=== PATIENT | male | born 1975 | race Hispanic/Latino ===

== ENCOUNTER 2021-05-19 19:02 | Emergency (ER) | payer OTHER ==
[~2021-05-19] VITALS: Ht 172.7 cm; Wt 115.7 kg
[2021-05-19 19:14] VITALS: BP 160/88
[2021-05-19 19:49] LABS: HEMATOCRIT 43.1 % (42-54); MEAN CORPUSCULAR HEMOGLOBIN 30.4 pg (27.0-33.0); MEAN CORPUSCULAR HGB CONC 33.9 g/dL (32.0-36.0); MEAN CORPUSCULAR VOLUME 89.6 fL (79-99); RED BLOOD CELL COUNT(AUTO) 4.81 MIL/uL (4.50-6.20); RED CELL DISTRIBUTION WIDTH 13.7 % (11.0-15.5); WHITE BLOOD COUNT (AUTO) 10.2 K/uL (4.8-10.8)
[2021-05-19 20:00] LABS: CREATININE 1.1 mg/dL (0.5-1.5); POTASSIUM 3.9 mmol/L (3.5-5.1)
[2021-05-19] MEDS ORDERED: LORAZEPAM 2 MG/ML 1 ML VIAL IVP ONE (20:00)
[2021-05-19 20:04] LABS: ALBUMIN 3.9 g/dL (3.5-5.0); BILIRUBIN,TOTAL 0.5 mg/dL (0.2-1.0); TOTAL PROTEIN, SERUM 7.7 g/dL (6.0-8.3)
[2021-05-19 20:54] VITALS: BP 143/81
[2021-05-19 22:41] VITALS: BP 128/78
[2021-05-19 22:43] LABS: BILIRUBIN,URINE Negative (NEGATIVE); COLOR,URINE Yellow (YELLOW); GLUCOSE, URINE (UA) Negative (NEGATIVE); KETONES,URINE Trace mg/dL (NEGATIVE); LEUKOCYTE ESTERASE ,URINE Negative (NEGATIVE); NITRATE,URINE Negative (NEGATIVE); OCCULT BLOOD,URINE Negative (NEGATIVE); PH,URINE 5.5 (5.0-8.0); PROTEIN,URINE Negative (NEGATIVE)
[2021-05-19 22:46] LABS: APPEARANCE,URINE CLEAR (CLEAR)
[2021-05-19 22:51] LABS: AMPHET/METH SCREEN,URINE NEGATIVE (NEGATIVE); BARBITURATE SCREEN, URINE NEGATIVE (NEGATIVE); BENZODIAZEPINES SCREEN,URINE NEGATIVE (NEGATIVE); CANNABINOID SCREEN,URINE POSITIVE (NEGATIVE); COCAINE SCREEN,URINE NEGATIVE (NEGATIVE); OPIATE SCREEN,URINE NEGATIVE (NEGATIVE); PHENCYCLIDINE SCREEN,URINE NEGATIVE (NEGATIVE)
[2021-05-19] MEDS ORDERED: NITROGLYCERIN 1GM OINT 1 INCH/1GM TD ONE (23:00)
[2021-05-19] MEDS ORDERED: MORPHINE 4 MG SYG IV ONE (23:00)
[2021-05-19] MEDS ORDERED: ONDANSETRON 4MG INJ IVP ONE (23:00)
[2021-05-19] MEDS ORDERED: ASPIRIN 325MG EC TAB PO ONE (23:00)
[2021-05-19] MEDS ORDERED: LIDOCAINE HCL 2% VISCOUS 15 ML UDCUP ONE (23:14)
[2021-05-19] MEDS ORDERED: MAG/ALUM/SIMETH 30 ML UDCUP ONE (23:14)
[2021-05-19] MEDS ORDERED: LIDOCAINE HCL 2% VISCOUS 15 ML UDCUP PO ONE (23:15)
[2021-05-19] MEDS ORDERED: MORPHINE 4 MG SYG ONE (23:15)
[2021-05-19] MEDS: MAG/ALUM/SIMETH 30 ML UDCUP PO SCH ×2 (23:33→23:57)
[2021-05-20 00:03] VITALS: BP 116/69
[2021-05-20 03:29] VITALS: BP 102/57
== END 2021-05-20 03:41 | disposition home or self-care (01) ==
LOC: EDH 19:02
DX: F41.1 Generalized anxiety disorder (principal); F45.8 Other somatoform disorders; E66.01 Morbid (severe) obesity due to excess calories; Z79.899 Other long term (current) drug therapy
CPT/HCPCS: 36415; 70450; 71045; 80053; 80305; 81003; 84484 ×2; 85027; 93005 ×2; 96374; 96375; 99285; J2060; J2270

== ENCOUNTER 2024-01-15 16:43 | Emergency (ER) | payer BC ==
[~2024-01-15] VITALS: Ht 172.7 cm; Wt 120.2 kg
[2024-01-15] MEDS: LIDOCAINE HCL 1% 20 ML VIAL ONE (19:15)
[2024-01-15] MEDS ORDERED: CEPH500T PO (19:47)
[2024-01-15] MEDS ORDERED: NAPR-1180 PO (19:47)
[2024-01-15 20:01] VITALS: BP 145/83; PULSE 61; RESP 18; O2SAT 97
== END 2024-01-15 20:19 | disposition home or self-care (01) ==
LOC: EDH 16:43
DX: L60.0 Ingrowing nail (principal)
CPT/HCPCS: 11730; 73660